=== PATIENT | female | born 1955 | race African-American/Black ===

== ENCOUNTER 2022-01-03 10:13 | Emergency (ER) | payer MEDICAID, OTHER ==
[~2022-01-03] VITALS: Ht 167.6 cm; Wt 72.1 kg
[2022-01-03] MEDS ORDERED: IV NS 1000 ML 1,000 ML IV ONE ×2 (10:45→13:30)
[2022-01-03 11:20] LABS: HEMATOCRIT 43.9 % (31.2-41.9); MEAN CORPUSCULAR HEMOGLOBIN 28.6 uug (24.7-32.8); MEAN CORPUSCULAR VOLUME 87.8 fL (75.5-95.3); PLATELET COUNT (AUTO) 289 K/uL (179-408)
[2022-01-03 11:34] LABS: CARBON DIOXIDE 27 mmol/L (21-32); CHLORIDE 100 mmol/L (98-107); CREATININE 0.7 mg/dL (0.6-1.3); GLUCOSE 101 mg/dL (74-106); POTASSIUM 3.3 mmol/L (3.5-5.1); UREA NITROGEN, BLOOD 24 mg/dL (7-18)
[2022-01-03 11:47] LABS: BILIRUBIN,DIRECT 0.1 mg/dL (0.0-0.2); BILIRUBIN,TOTAL 0.6 mg/dL (0.2-1.0); TOTAL PROTEIN, SERUM 9.7 g/dL (6.4-8.2)
[2022-01-03 11:49] LABS: THYROID STIMULATING HORMONE 1.249 mIU/mL (0.358-3.740)
[2022-01-03] MEDS: POTASSIUM CHLORIDE 20 MEQ TAB.PRT.SR PO ONE ×2 (12:30→12:43)
--- NOTE | 2022-01-03 12:30 | NUR ---
Unable to administer PO medication. Patient present with difficulty swallowing when given one spoonful of water.
[2022-01-03] MEDS ORDERED: POTASSIUM CHLORIDE 20 MEQ TAB.PRT.SR ONE (12:42)
[2022-01-03] MEDS ORDERED: ASCO500C18 PO (13:41)
[2022-01-03 13:46] LABS: *BILIRUBIN,URIN NEGATIVE (NEGATIVE); *BLOOD, URINE NEGATIVE (NEGATIVE); *CLARITY,URINE CLEAR (CLEAR); *COLOR,URINE YELLOW (YELLOW); *KETONES,URINE 1+ (NEGATIVE); *UROBILINOGEN,URINE 0.2 E.U./dl (NORMAL); LEUKOCYTE ESTERASE ,URINE NEGATIVE (NEGATIVE); NITRITE, URINE NEGATIVE (NEGATIVE); UGLUCOSE NEGATIVE (NEGATIVE)
[2022-01-03] MEDS ORDERED: ASPI81TA31 PO (13:46)
[2022-01-03] MEDS ORDERED: TRAM50TA2 PO (13:46)
[2022-01-03] MEDS ORDERED: AMLO10TA59 PO (13:46)
[2022-01-03] MEDS ORDERED: DOCU100C36 PO (13:46)
[2022-01-03] MEDS ORDERED: SENN-261 PO (13:46)
[2022-01-03] MEDS ORDERED: SERT25TA PO (13:46)
[2022-01-03] MEDS ORDERED: CARB1TAB21 PO (13:46)
[2022-01-03] MEDS ORDERED: GUAI-1197 PO (13:46)
--- NOTE | 2022-01-03 18:11 | NUR ---
Transport set up with [facility]TA 45MIN. Patient will be going to [facility].
--- NOTE | 2022-01-03 19:50 | NUR ---
[facility] ambulance is here to transport the pt to [facility]. REport was called to [facility] by Dian Atkinson RN. [facility] transport unit [id number] and names of emt is cyn Patel.
--- NOTE | 2022-01-03 19:53 | NUR ---
nursing assessent charting was not completed on this pt, the charting was now performed.
--- NOTE | 2022-01-03 20:03 | NUR ---
pt is now transferred to [facility] via [facility].
== END 2022-01-03 20:14 | disposition short-term general hospital (02) ==
LOC: ER 10:13
DX: R13.10 Dysphagia, unspecified (principal); R53.1 Weakness; E86.0 Dehydration; G20 Parkinson's disease; E87.6 Hypokalemia; Z20.822 Contact with and (suspected) exposure to COVID-19; I10 Essential (primary) hypertension; Z83.3 Family history of diabetes mellitus; Z79.82 Long term (current) use of aspirin; Z79.899 Other long term (current) drug therapy; R94.31 Abnormal electrocardiogram [ECG] [EKG]
CPT/HCPCS: 99285; 96360; 70450; 71045; 87426; 80076; 80048; 81003; 82550; 83880; 84443; 85025; 85730; 84484; 36415; 93005; J7040; A4663